=== PATIENT | male | born 1985 | race American Indian/Alaskan Native ===

== ENCOUNTER 2020-10-10 21:09 | Emergency (ER) | payer SELFPAY ==
--- NOTE | 2020-10-10 22:29 | XRay Report ---
CHEST 2 VIEWS INDICATION / CLINICAL INFORMATION: Chest Pain. COMPARISON: None available. FINDINGS: SUPPORT DEVICES: None. HEART / MEDIASTINUM: No significant abnormality. LUNGS / PLEURA: Minimal atelectasis in left lower lung No pneumothorax. ADDITIONAL FINDINGS: No significant additional findings. IMPRESSION: 1. No acute findings. Signer Name: Marty Martin MD Signed: 10/10/2020 10:25 PM Workstation Name: [id number]
[2020-10-10 23:20] LABS: Basophils % (Auto) 0.2 % (0.0-1.8); Eosinophils # (Auto) 0.1 K/mm3 (0.0-0.4); Eosinophils % (Auto) 2.9 % (0.0-4.3); Hematocrit 42.1 % (35.5-45.6); Hemoglobin 14.7 gm/dl (11.8-15.2); Lymphocytes # (Auto) 2.4 K/mm3 (1.2-5.4); Lymphocytes % (Auto) 46.7 % (13.4-35.0); Mean Corpuscular HGB Conc 35 % (32-34); Mean Corpuscular Volume 96 fl (84-94); Monocytes # (Auto) 0.3 K/mm3 (0.0-0.8); Monocytes % (Auto) 5.4 % (0.0-7.3); Platelet Count 172 K/mm3 (140-440); Red Blood Count 4.39 M/mm3 (3.65-5.03); Red Cell Distribution Width 13.5 % (13.2-15.2)
[2020-10-10 23:33] LABS: BUN/Creatinine Ratio 11; Blood Urea Nitrogen 12 mg/dL (9-20); Calcium 9.3 mg/dL (8.4-10.2); Hemolysis Index 19
[2020-10-11] MEDS ORDERED: predniSONE 20 MG TAB PO ONE (07:52)
--- NOTE | 2020-10-11 07:55 | Emergency Department Report ---
ED Chest Pain HPI - General Chief Complaint: Chest Pain Stated Complaint: CHEST PAIN/RT SIDE PAIN Time Seen by Provider: 10/11/20 07:46 Source: patient Mode of arrival: Ambulatory Limitations: No Limitations - History of Present Illness Initial Comments: This is a 35-year-old -[place] male presents to the emergency department with 2 complaints, both of which started on Friday, 3 days ago. First, the patient had some generalized chest discomfort that was sharp and intermittent. He took an aspirin that night and says that the chest pain has since resolved and not returned. Secondly, the patient complains of some pain going from the right lower back, through his buttock and hip, and down his right leg. It worsens when he is standing up from sitting or with certain movements. The patient says that he has a job in which he stands for 10 hours straight. He tried a muscle relaxer on Friday as well, without much relief. He denies any extremity swelling, skin color change, rash, lesions, numbness or paresthesias. He has a past medical history of hypertension. Denies any tobacco use or illicit drug use. No family history of early heart attack. - Related Data Previous Rx's Medication Instructions Recorded Last Taken Type predniSONE [Deltasone] 20 mg PO BID #10 tab 10/11/20 Unknown Rx Allergies Allergy/AdvReac Type Severity Reaction Status Date / Time Penicillins Allergy Hives Verified 10/11/20 08:35 Heart Score - HEART Score History: Slightly suspicious EKG: Normal Age: < 45 Risk factors: 1-2 risk factors Troponin: < normal limit HEART Score: 1 - EKG Read Time Time EKG Completed: 22:03 EKG Read Time: 22:07 - Critical Actions Critical Actions: 0-3 pts:0.9-1.7%risk of adverse cardiac event.Candidate for discharge ED Review of Systems ROS: Stated complaint: CHEST PAIN/RT SIDE PAIN Other details as noted in HPI Comment: All other systems reviewed and negative Constitutional: denies: chills, fever Eyes: denies: eye pain, vision change ENT: denies: ear pain, throat pain Respiratory: denies: cough, shortness of breath Cardiovascular: chest pain. denies: palpitations Gastrointestinal: denies: abdominal pain, vomiting Genitourinary: denies: dysuria, discharge Musculoskeletal: back pain, myalgia. denies: joint swelling Skin: denies: rash, lesions Neurological: denies: numbness, paresthesias ED Past Medical Hx - Past Medical History Previous Medical History?: Yes Hx Hypertension: Yes - Surgical History Past Surgical History?: No - Social History Smoking Status: Never Smoker Substance Use Type: None - Medications Home Medications: Home Medications Medication Instructions Recorded Confirmed Last Taken Type predniSONE [Deltasone] 20 mg PO BID #10 tab 10/11/20 Unknown Rx ED Physical Exam - General Limitations: No Limitations - Other Other exam information: GENERAL: The patient is well-developed well-nourished. HENT: Normocephalic. Atraumatic. Patient has moist mucous membranes. EYES: Extraocular motions are intact. NECK: Supple. Trachea is midline. CHEST/LUNGS: Clear to auscultation. There is no respiratory distress noted. HEART/CARDIOVASCULAR: Regular. There is no tachycardia. There is no murmur. ABDOMEN: Abdomen is soft, nontender. Patient has normal bowel sounds. There is no abdominal distention. SKIN: Skin is warm and dry. NEURO: The patient is awake, alert, and oriented. The patient is cooperative. The patient has no focal neurologic deficits. Normal speech. MUSCULOSKELETAL: There is no tenderness or deformity. There is no limitation range of motion. Positive right straight leg raise test. ED Course Vital Signs 10/10/20 10/11/20 10/11/20 21:58 08:06 08:30 Temperature 98.7 F Pulse Rate 89 74 Respiratory 18 18 19 Rate Blood Pressure 137/77 Blood Pressure 134/82 [Right] O2 Sat by Pulse 97 97 Oximetry 10/11/20 08:49 Temperature Pulse Rate 75 Respiratory 18 Rate Blood Pressure Blood Pressure 132/84 [Right] O2 Sat by Pulse 97 Oximetry MATIAS score - Matias Score Age > 65: (0) No Aspirin use within the Past 7 Days: (0) No 3 or more CAD Risk Factors: (0) No 2 or more Angina events in past 24 hrs: (0) No Known CAD with more than 50% Stenosis: (0) No Elevated Cardiac Markers: (0) No ST Deviation Greater than 0.5mm: (0) No MATIAS Score: 0 ED Medical Decision Making - Lab Data Result diagrams: 10/10/20 22:37 10/10/20 22:37 Lab Results 10/10/20 10/10/20 Range/Units 22:37 22:37 WBC 5.1 (4.5-11.0) K/mm3 RBC 4.39 (3.65-5.03) M/mm3 Hgb 14.7 (11.8-15.2) gm/dl Hct 42.1 (35.5-45.6) % MCV 96 H (84-94) fl MCH 33 H (28-32) pg MCHC 35 H (32-34) % RDW 13.5 (13.2-15.2) % Plt Count 172 (140-440) K/mm3 Lymph % (Auto) 46.7 H (13.4-35.0) % [place] % (Auto) 5.4 (0.0-7.3) % Eos % (Auto) 2.9 (0.0-4.3) % Baso % (Auto) 0.2 (0.0-1.8) % Lymph # (Auto) 2.4 (1.2-5.4) K/mm3 [place] # (Auto) 0.3 (0.0-0.8) K/mm3 Eos # (Auto) 0.1 (0.0-0.4) K/mm3 Baso # (Auto) 0.0 (0.0-0.1) K/mm3 Seg Neutrophils % 44.8 (40.0-70.0) % Seg Neutrophils # 2.3 (1.8-7.7) K/mm3 Sodium 143 (137-145) mmol/L Potassium 4.1 (3.6-5.0) mmol/L Chloride 103.5 (98-107) mmol/L Carbon Dioxide 27 (22-30) mmol/L Anion Gap 17 mmol/L BUN 12 (9-20) mg/dL Creatinine 1.1 (0.8-1.3) mg/dL Estimated GFR > 60 ml/min BUN/Creatinine Ratio 11 % Glucose 133 H (75-100) mg/dL Calcium 9.3 (8.4-10.2) mg/dL Troponin T < 0.010 (0.00-0.029) ng/mL Lipase 17 (13-60) units/L - EKG Data -: EKG Interpreted by Nv EKG shows normal: sinus rhythm, axis, intervals, QRS complexes (LVH), ST-T waves Rate: normal - EKG Data When compared to previous EKG there are: previous EKG unavailable Interpretation: LVH - Radiology Data Radiology results: image reviewed interpreted by me: Chest x-ray does not show any acute process. There are no pleural effusions, obvious pneumonia and there is no pneumothorax. No widened mediastinum. - Medical Decision Making This patient presents with 2 complaints. Patient had an episode of generalized chest pain on Friday that resolved after the patient took some aspirin. It has not returned. EKG does not have any morphology consistent with ST elevation myocardial infarction or any ischemia or dysrhythmia. Chest x-ray does not show any pneumonia, pleural effusions, pneumothorax, widened mediastinum, or any other acute process. Patient's labs have been unremarkable including CBC, metabolic panel and a negative troponin. He is low on the heart and MATIAS score. He is low on the Wells score criteria negative on the pulmonary embolism rule out criteria. For all these reasons, the patient appears safe for discharge home. His contact information has been sent over to the [facility], and someone from their office should be contacting him shortly for close outpatient follow-up as part of our [facility] low risk chest pain protocol. Secondly, the patient also complains of some pain from the right lower back that goes through the hip and buttock and down the right leg. It is positive on straight leg raise test. There is no rash, lesions, or swelling seen to the affected right lower extremity. All this appears consistent with sciatica. The patient has been placed on a course of steroids, and already has muscle relaxers to use at home. He has been given a referral for a local orthopedist. The patient was seen ambulatory in the emergency department and both appears and feels stable. Critical Care Time: No Critical care attestation.: If time is entered above; I have spent that time in minutes in the direct care of this critically ill patient, excluding procedure time. ED Disposition Clinical Impression: Chest pain Qualifiers: Chest pain type: unspecified Qualified Code(s): R07.9 - Chest pain, unspecified Sciatica Qualifiers: Laterality: right Qualified Code(s): M54.31 - Sciatica, right side Disposition: TO HOME OR SELFCARE Is pt being admited?: No Condition: Stable Instructions: Nonspecific Chest Pain, Adult, Sciatica Additional Instructions: Please follow-up with a primary care physician in the next few days. I have given you a referral for a local primary care physician, Dr. Bartholomew, and a primary care clinic, [facility]. I am giving you a referral for a local orthopedist, Dr. Zelaya, to follow-up regarding your back and leg pain, sciatica. I am sending your contact information over to the [facility], and someone from their office should be contacting you shortly for close outpatient follow-up. Just in case, I am giving you a referral for one of their zumba instructor, Dr. Still. Return to the emergency department with any worsening of your symptoms, new or concerning symptoms not addressed during this current emergency department visit, or with any acute distress. Prescriptions: predniSONE [Deltasone] 20 mg PO BID #10 tab Referrals: RIAZ STILL MD [Staff Physician] - 3-5 Days JAMES ZELAYA MD [Staff Physician] - 3-5 Days SWAPNIL BARTHOLOMEW MD [Staff Physician] - 3-5 Days [facility] [Provider Group] - 3-5 Days Forms: Work/School Release Form(ED) Time of Disposition: 08:27
[2020-10-11 08:51] VITALS: BP 132/84
--- NOTE | 2020-10-11 18:02 | Electrocardiograph Report ---
[facility] Test Date: 2020-10-10 Test Time: 22:03:41 Pat Name: LEEANN ALFREDO Department: Room: Gender: M [employer]: NAYA : 1985 Requested By: ED DOC Order Number: [id number] Reading MD: Priscilla Castaneda Measurements Intervals [place] Rate: 82 P: 55 DE: 149 QRS: 77 QRSD: 86 T: -1 QT: 338 QTc: 395 Interpretive Statements Sinus rhythm Probable left atrial enlargement Probable left ventricular hypertrophy No previous ECG available for comparison Electronically Signed On 10-11-2020 18:02:21 EDT by Priscilla Castaneda
--- NOTE | 2020-10-11 18:06 | Electrocardiograph Report ---
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
== END 2020-10-11 08:49 | disposition home or self-care (01) ==
LOC: ED 21:09
DX: M54.31 Sciatica, right side (principal); R07.89 Other chest pain; I10 Essential (primary) hypertension; Z88.0 Allergy status to penicillin; Z79.899 Other long term (current) drug therapy
CPT/HCPCS: 36415; 71046; 80048; 83690; 84484; 85025; 93005; 99284; J7512